=== PATIENT | male | born 1965 | race Caucasian/White ===

== ENCOUNTER 2016-08-08 06:15 | Day surgery (SDC) | payer BC ==
[~2016-08-08 06:15] MED LIST: ACETAMINOPHEN 325 MG TABLET PO PRN; CLINDAMYCIN PHOSPHATE 600 MG in DEXTROSE 5 % IN WATER 100 ML IV PRN; DEXAMETHASONE SOD PHOSPHATE 10 MG/ML VIAL IV PRN; MORPHINE SULFATE 10 MG/ML SYRG IV PRN; MORPHINE SULFATE 4 MG/ML SYRG IV PRN; ONDANSETRON HCL/PF 2 MG/ML VIAL IV PRN; RINGERS SOLUTION,LACTATED 1,000 ML IV PRN; oxyCODONE HCL/ACETAMINOPHEN 1 TAB TABLET PO PRN
[2016-08-08] MEDS: OXYMETAZOLINE HCL 150 SPRAY BTL NS PRN ×2 (06:31→07:04)
[2016-08-08] MEDS ORDERED: RINGERS SOLUTION,LACTATED 1,000 ML IV ONE (06:46)
[2016-08-08] MEDS ORDERED: MUPIROCIN 22 APPL TUBE TP ONE (07:22)
[2016-08-08] MEDS ORDERED: COCAINE HCL 4 APPL BTL TP ONE (07:22)
[2016-08-08] MEDS ORDERED: LIDOCAINE HCL/EPINEPHRINE 30 ML VIAL IJ ONE (07:22)
[2016-08-08] MEDS ORDERED: MORPHINE SULFATE 4 MG/ML SYRG IM/IV ONE (08:05)
[2016-08-08 09:45] VITALS: BP 124/80
== END 2016-08-08 06:16 | disposition home or self-care (01) ==
LOC: AMB 06:15
PROVIDERS: ATTEND Allergy & Immunology
PROC: 09BL0ZZ Excision of Nasal Turbinate, Open Approach (ICD-10-PCS; 2016-08-08)
PROC: 09SM0ZZ Reposition Nasal Septum, Open Approach (ICD-10-PCS; principal; 2016-08-08 07:00)
DX: J34.3 Hypertrophy of nasal turbinates (principal); J34.2 Deviated nasal septum; I10 Essential (primary) hypertension; Z68.33 Body mass index [BMI] 33.0-33.9, adult